=== PATIENT | female | born 2000 | race Caucasian/White ===

== ENCOUNTER 2023-09-08 19:26 | Emergency (ER) | payer OTHER, SELFPAY ==
--- NOTE | ~2023-09-08 | XR_ITS ---
EXAMINATION: XR ankle LT min 3V, XR foot LT min 3V CLINICAL INFORMATION: Reason for Exam Twisting injury, tender bilateral malleolus COMPARISON: None. TECHNIQUE: 2 views of the left ankle and 3 views of the left foot. FINDINGS: Left foot and ankle: The bony alignment is intact. The cortices are intact. Articular margins, joint space appear unremarkable. Mild nonspecific soft tissue swelling is present overlying the left lateral malleolus. However, small cortical avulsion is present at the base of the fifth metatarsal. The remainder of the visualized bones of the left foot are unremarkable. XR/XR ankle LT min 3V IMPRESSION: Small cortical avulsion fracture seen at the base of the left fifth metatarsal best seen on the ankle views (see the william images).
--- NOTE | ~2023-09-08 | XR_ITS ---
EXAMINATION: XR ankle LT min 3V, XR foot LT min 3V CLINICAL INFORMATION: Reason for Exam Twisting injury, tender bilateral malleolus COMPARISON: None. TECHNIQUE: 2 views of the left ankle and 3 views of the left foot. FINDINGS: Left foot and ankle: The bony alignment is intact. The cortices are intact. Articular margins, joint space appear unremarkable. Mild nonspecific soft tissue swelling is present overlying the left lateral malleolus. However, small cortical avulsion is present at the base of the fifth metatarsal. The remainder of the visualized bones of the left foot are unremarkable. XR/XR foot LT min 3V IMPRESSION: Small cortical avulsion fracture seen at the base of the left fifth metatarsal best seen on the ankle views (see the william images).
[2023-09-08 20:09] VITALS: BP 125/70; PULSE 94; RESP 18; TEMP 36.6; O2SAT 99; BMI 47.4
--- NOTE | 2023-09-08 20:56 | ED_ITS ---
HPI - Fall General Chief Complaint: Fall Stated Complaint: fall, possible broken foot, is Time Seen by Provider: 09/08/23 20:55 Source: patient and family (Sister) Mode of arrival: ambulatory Limitations: no limitations History of Present Illness HPI Narrative: 22-year-old female who presents emergency department for evaluation injury to left ankle and foot. Patient was getting out of her car and she had platform shoes on, she states that she twisted her ankle and felt a popping sensation. Patient fell to the ground on her knees. She did not strike her head or her abdomen. She is currently complaining left foot and ankle pain and is having difficulty walking secondary to pain. Patient is 25 weeks and is having her baby at [facility]. Patient has been getting care and she states she has had ultrasound which did reveal a slightly low placental above otherwise was unremarkable. Patient denies any abdominal pain since the fall. She states that she is feeling the baby move normally. She has not had any vaginal discharge or vaginal bleeding. She denies headaches, lower extremity swelling or urinary symptoms Related Data Allergies Allergy/AdvReac Type Severity Reaction Status Date / Time No Known Allergies Allergy Unverified 06/10/20 19:46 [No Known Allergies*] Review of Systems Review of Systems: Yes all other systems are reviewed and are negative PMFSH Social History Social History Advance Directives: No Advance Directives Information Provided: No Physical Exam Vital Signs: Vital Signs: Last Vital Signs Temp 98 F 09/08/23 20:09 Pulse 94 09/08/23 20:09 Resp 18 09/08/23 20:09 BP 125/70 09/08/23 20:09 Pulse Ox 99 09/08/23 20:09 O2 Del Method Room Air 09/08/23 20:09 BMI result Body Mass Index 47.4 Vital signs are normal with a blood pressure of 125/70. Exam General: Awake, alert in no distress Extremities: Patient has tenderness palpation over the bilateral malleoli of the left ankle with soft tissue swelling bilaterally, she also has tenderness with palpation over the MTP joints of the foot with no obvious ecchymosis or soft tissue swelling, extremities neurovascular intact Skin: no rashes, no lesion, normal color and warmth Psych: Pleasant, cooperative Medical Decision Making Medical Decision Making MDM Narrative: 22-year-old female 25 weeks who presents emergency department for evaluation of a left ankle and foot injury that occurred prior to coming to the emergency department. Patient had no head injury abdominal injury is having no abdominal pain, feels the baby moving and she has had no concerning symptoms regarding the prior to falling. Patient also denied head injury. Exam did reveal tenderness palpation of the bilateral malleolus of the left ankle and MTP joints of the left foot. I did order x-ray of the left ankle and left foot. The patient chest x-ray was read as small cortical avulsion fracture seen at the base of the left 5th metatarsal best seen on the ankle view Differential Diagnosis Differential Diagnoses: The differential diagnosis associated with the presentation includes Differential diagnosis includes but is not limited to ankle sprain, ankle fracture foot sprain, foot fracture, related illnesses Independent Interpretation I performed an independent interpretation of an: Plain X-Ray Interpretation: My interpretation patient's left ankle and left foot x-ray is no acute fracture Radiology Impression Discussion of test interpretation with radiology: I have reviewed the radiologist's reading. Radiologist Impression: XR foot LT min 3V IMPRESSION: Small cortical avulsion fracture seen at the base of the left fifth metatarsal best seen on the ankle views (see the william images). Dictated By: Elvis Olivas MD Discharge Plan Discharge Clinical Impression: Left ankle sprain, Sprain of left foot, Second trimester Patient Disposition: Home, Self-Care Instructions: Ankle Sprain (ED), Foot Sprain (ED) Additional Instructions: On my review of your x-rays I do not see any broken bones. I will call or text me with the radiology reading and if there is a change in treatment I will let you know I am placing you in a walking boot and given crutches. You can foot weight on the walking boot but use the crutches to reduce the amoun t of weight that she putting on the left foot.. Take Tylenol (acetaminophen) 500 mg pills, 2 pills every 6 hours as needed for pain or fever. Do not take aspirin, ibuprofen, Motrin, Advil, Aleve, naproxen or any other nonsteroidal anti-inflammatory pain medication while your Follow-up with our orthopedic doctors in 1 week Please return to the emergency department if your symptoms get worse or if you develop any symptoms that are concerning to you. Referrals: Lex Almaraz MD [Physician] - 1 week (Left foot and ankle sprain) Interventions: ED Discharge Assessment Last Done: 09/08/23 22:24 Discharge Date/Time: 09/08/23 22:40
== END 2023-09-08 22:40 | disposition home or self-care (01) ==
PROVIDERS: Emergency Provider Emergency Medicine Emergency Medical Services
DX: O9A.212 Injury, poisoning and certain other consequences of external causes complicating pregnancy, second trimester (principal); S93.602A Unspecified sprain of left foot, initial encounter; S93.402A Sprain of unspecified ligament of left ankle, initial encounter; X50.1XXA Overexertion from prolonged static or awkward postures, initial encounter; Z3A.25 25 weeks gestation of pregnancy; Y93.89 Activity, other specified; Y92.810 Car as the place of occurrence of the external cause; Y99.9 Unspecified external cause status
CPT/HCPCS: 73610; 73630; 99283

== ENCOUNTER 2023-09-21 08:42 | Outpatient (AMB) | payer OTHER, SELFPAY ==
--- NOTE | 2023-09-21 08:43 | A.OFFVIS_ITS ---
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 Patient reports while she was getting out of her car, wearing platform shoes, she twisted her ankle and felt a popping sensation with getting back up. Presented to [facility] ED on 09/08/23 where xrays were take, placed in boot, and crutches were given. Currently her pain gets worse with prolong walking. States tender to the touch. Finds little to no relief with Tylenol. 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 She was seen at ED on 09/08/23 where x-rays were performed, she was placed in a boot and crutches were given. She currently states she has pain in her left leg which is aggravated with prolonged ambulation. She also reports her foot is tender to touch. She finds minimal relief with Tylenol. 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 Review of Systems Const All systems reviewed & are unremarkable except as noted in HPI and below Physical Exam Vital Signs: BMI result Body Mass Index 47.4 Const General: cooperative, healthy appearing, comfortable, no acute distress, well developed and alert Orientation/consciousness: patient oriented x3 HEENT Head: Yes normal to inspection, Yes normocephalic and Yes atraumatic Eyes General: appearance normal, both eyes and all related structures Resp Effort & Inspection: normal respiratory effort and able to speak in complete sentences Cardio Rate: regular rate Peripheral pulses: Peripheral pulses 2+ throughout GI Palpation (GI): Soft to palpation Skin Lesions: no lesions Rashes: no rashes Neuro General: patient oriented x3 Extrem Other: Left foot: Normal to inspection. She does have some swelling along the lateral aspect of the foot. Tenderness to palpation over the base of 5th metatarsal which extends into the soft tissues around the lateral malleolus. No pain over the medial malleolus. No pain over the syndesmosis. NVI. Office Procedures Fracture Care Fracture Billing Code: Fracture Billing Code Results Reviewed Results Reviewed: xrays of the left foot obtained in the ED on 09/08/23 IMPRESSION: Small cortical avulsion fracture seen at the base of the left fifth metatarsal Assessment & Plan Assessment & Plan (1) Right ankle sprain: Code(s): S93.401A - Sprain of unspecified ligament of right ankle, initial encounter Qualifiers: Encounter type: initial encounter Involved ligament of ankle: anterior talofibular ligament Qualified Code(s): S93.491A - Sprain of other ligament of right ankle, initial encounter (2) Fracture of 5th metatarsal: Code(s): S92.353A - Displaced fracture of fifth metatarsal bone, unspecified foot, initial encounter for closed fracture Qualifiers: Encounter type: initial encounter Fracture type: closed Fracture alignment: nondisplaced Laterality: left Qualified Code(s): S92.355A - Nondisplaced fracture of fifth metatarsal bone, left foot, initial encounter for closed fracture Plan She will continue wearing her boot weight bearing as tolerated for the next 2-3 weeks for resting. She will remove the boot for hygiene. She will begin a course of physical therapy to work on ROM, gentle strength and proprioceptive training. If symptoms persist or worsens, patient will contact the office, otherwise follow-up as needed. Orders: Orders PT Evaluation and Treatment Today S92.353A - Displaced fracture of fifth metatarsal bone, unspecified foot, initial encounter for closed fracture, S93.401A - Sprain of unspecified ligament of right ankle, initial encounter Patient Instructions: Scribed for Eliel Mendez PA-C, by Ever Marks certified medical aide, on 09/21/2023 at 8:30 AM EST. I, Eliel Mendez PA-C, have personally reviewed and agree with the information entered by the scribe. Coding Level of Care Code New Pt Level 3 (02677) Diagnoses Sprain of anterior talofibular ligament of right ankle, initial encounter S93.491A Encounter type: initial encounter Involved ligament of ankle: anterior talofibular ligament Closed nondisplaced fracture of fifth metatarsal bone of left foot, initial encounter S92.355A Encounter type: initial encounter Fracture type: closed Fracture alignment: nondisplaced Laterality: left CPT Codes Fracture Care - Fracture Billing Code: Fracture Billing Code ([id number])
[2023-09-21 08:52] VITALS: BMI 47.4
== END 2023-09-21 09:05 | disposition home or self-care (01) ==
PROVIDERS: Visit Provider Physician Assistant
DX: S93.491A Sprain of other ligament of right ankle, initial encounter (principal); S92.355A Nondisplaced fracture of fifth metatarsal bone, left foot, initial encounter for closed fracture
CPT/HCPCS: 99203

== ENCOUNTER → 2023-09-21 08:42 | Outpatient (BNVA) | payer OTHER, SELFPAY | PROVIDERS: Visit Provider Physician Assistant | DX: S92.355A Nondisplaced fracture of fifth metatarsal bone, left foot, initial encounter for closed fracture (principal); S93.491A Sprain of other ligament of right ankle, initial encounter | CPT/HCPCS: 99202 ==

== ENCOUNTER 2024-09-19 10:55 | Outpatient (AMB) | payer OTHER, SELFPAY ==
--- NOTE | 2024-09-19 10:58 | MHC.PC.OV ---
Vital Signs 09/19/24 11:06 Height 5 ft 5 in Weight 288 lb 2 oz BMI 47.9 BP 130/70 Blood Pressure Location Rt brachial Position Sitting Respiration 16 Pulse 68 Pulse Source Pulse Oximeter Temp 98.6 F Temp Source Oral Pulse Oximetry (%) 98 Oxygen Delivery Method Room Air Intake Visit Reasons: New Appt New Patient requesitng an PE Intake Note: patient here for new patient visit [employer] Required: No Is last menstrual period known: Yes Last menstrual period: 08/27/24 Post menopausal: No Patient : No Allergies No Known Allergies [No Known Allergies*] Allergy (Verified 09/19/24 11:07) Medication List - Last Reconciled 09/19/24 by Jewels Flowers CNP No Known Home Meds Tobacco use date assessed: 09/19/24 Dental Screening Dental Screen Date: 09/19/24 Did you have a dental visit in the last 12 months?: No Did you have a dental problem in the last 6 months where you did not have access to dental care?: No Was dental information given to patient?: Yes HPI HPI Comments History of Present Illness Details 23-year-old female presents for an extended physical exam. Prior PCP? - [facility] Last office visit/CPE/labs - About 2 years ago Acute issue(s) - None Past Medical History - Gastric ulcer, morbid obesity, myopia (wears prescription glasses) Surgical History - None Family History - MGF: Alcohol abuse Social History - Nonsmoker. Does not vape. Does not drink alcohol. Denies recreational drug use - Has been making healthy dietary choices. Exercises routinely (cardio and leg presses three times weekly. Generally sleep well. Requests weight management referral for bariatric surgery - Sexually active, in a monogamous relationship, use condoms for control, no concerns for STDs Health maintenance - Last eye exam was 5 years ago. Referred to Ophthalmology for routine eye care - Last dental visit was about 2 years ago; encouraged to schedule an appointment with his dentist for routine dental care - Last Tdap was in 2022 - Has not been vaccinated for the flu this season; administered during this visit - Last pap smear test was with [facility] in 08/2023 or 09/2023 [facility] Medical History (Updated 09/19/24 @ 11:39 by Jewels Flowers CNP) Stomach ulcer Surgical History Hx of endoscopy Family History (Updated 09/19/24 @ 11:12 by Jaquelin Silverio) Maternal Grandfather Alcohol abuse Brother Asthma Paternal Grandfather Diabetes Social History (Updated 09/21/23 @ 08:52 by Sofy Seay [facility]) Housing: Apartment Patient Tobacco Use Status: Never used Tobacco e-Cigarette/Vaping Use: Never Used Second Hand Smoke Exposure: No service: No Current occupational status: employed Current occupation: [email or web address] Current occupational exposures/hazards: No Cognitive needs: No Hearing needs: No Vision needs: Yes Female Reproductive History Menstrual Date of last menstrual period: 08/27/24 Questionnaire PHQ-9 Over the last 2 weeks, how often have you been bothered by any of the following problems? 1. Little interest or pleasure in doing things: not at all 2. Feeling down, depressed, or hopeless: not at all 3. Trouble falling or staying asleep, or sleeping too much: not at all 4. Feeling tired or having little energy: not at all 5. Poor appetite or overeating: not at all 6. Feeling bad about yourself - or that you are a failure or have let yourself or your family down: not at all 7. Trouble concentrating on things, such as reading the newspaper or watching television: not at all 8. Moving or speaking so slowly that other people could have noticed. Or the opposite - being so fidgety or restless that you have been moving around a lot more than usual: not at all 9. Thoughts that you would be better off or of hurting yourself in some way: not at all Total score: 0 Depression Screening Interpretation: Negative Depression Screening Done: Yes 30162 - PHQ-9 Billing: Yes Source: Developed by Drs. Rigoberto Whatley, Rosalinda Carmichael, Josué Duarte and colleagues, with an educational sania from [employer]. Thrive Questionnaire Date Thrive assessed: 09/19/24 I am a: Patient What is your living situation today?: I have a steady place to live Within the past 12 months, did the food you bought not last and you didn't have the money to get more?: Never true Within the past 12 months, did you worry whether your food would run out before you got money to buy more?: Never true Do you have trouble paying for medicines?: No Do you have trouble getting transportation to medical appointments?: No Do you have trouble paying your heating and electricity bill?: No Do you have trouble taking care of your child, family member or friend?: No Do you have trouble with day-to-day activities such as bathing, preparing meals, shopping, managing finances, etc.?: No Are you currently unemployed and looking for a job?: No Are you interested in more education?: Yes Please select the resources that you would like help with: None Currently or been in a relationship where the following occur: No concerns reported THRIVE Score: 0 AUDIT C Alcohol Use Questionnaire (AUDIT-C) 1. How often do you have a drink containing alcohol?: Never Total Score: 0 SOSA-7 AMB Questionnaire SOSA-7 Date SOSA - 7 assessed: 09/19/24 Feeling nervous, anxious, or on edge: 0 = Not at all Not being able to stop or control worryin = Not at all Worrying too much about different things: 0 = Not at all Trouble relaxin = Not at all Being so restless that it is hard to sit still: 0 = Not at all Becoming easily annoyed or irritable: 0 = Not at all Feeling afraid as if something awful might happen: 0 = Not at all Total SOSA-7 score (0-4 normal; 5-9 mild; 10-14 moderate; 15-21 severe): 0 Source: Developed by Drs. Rigoberto Whatley, Rosalinda Carmichael, Josué Duarte and colleagues, with an educational sania from [employer]. SOSA-7 Assessment Billing SOSA-7 Assessment Tool: SOSA-7 Assessment 54251 Review of Systems Const Details: Denies chills, Denies fatigue, Denies fever(s), Denies headache(s) and Denies weakness HEENT Denies change in vision, Denies dizziness, Denies headache(s), Denies hearing loss, Denies nasal congestion, Denies sinus pain, Denies sinus pressure and Denies sore throat Card Denies chest pain, Denies lightheadedness, Denies dyspnea and Denies other (palpitations) Resp Denies cough, Denies dyspnea and Denies wheezing GI Denies abdominal pain, Denies melena, Denies hematochezia, Denies change in bowel habits, Denies dyspepsia and Denies nausea Denies hematuria and Denies dysuria Musc Denies abnormal gait, Denies myalgias, Denies arthralgias, Denies numbness and Denies tingling Skin/Breast Denies rash, Denies unusual bruising and Denies wounds Neuro Denies abnormal gait, Denies dizziness, Denies headache(s), Denies memory loss, Denies numbness, Denies Sensory deficit (Neuro), Denies tingling and Denies weakness Psych Denies anxiety, Denies depression and Denies memory loss Endo Denies cold intolerance, Denies fatigue, Denies heat intolerance, Denies polydipsia and Denies polyuria Will/Lymph Denies easy bleeding and Denies easy bruising Aller/Immun Denies wheezing Physical exam (Primary Care) Vital Signs: Last Vital Signs Temp 98.6 F 09/19/24 11:06 Pulse 68 09/19/24 11:06 Resp 16 09/19/24 11:06 BP 130/70 09/19/24 11:06 Pulse Ox 98 09/19/24 11:06 Oxygen Delivery Method Room Air 09/19/24 11:06 BMI result Body Mass Index 47.9 Tobacco/Smoking Status: Tobacco use Status Tobacco use date assessed 09/19/24 09/19/24 11:06 Patient Tobacco Use Status Never used Tobacco 09/19/24 11:06 e-Cigarette/Vaping Use Never Used 09/19/24 11:06 PHQ-9: PHQ-9 Score PHQ-9: Total score 0 09/19/24 11:46 Depression Screening Interpretation: Negative Thrive Assessment: Date of Thrive Assessment Date Thrive assessed 09/19/24 09/19/24 11:06 Currently or been in a relationship where the following occur: No concerns reported Const Other: General: no acute distress, well developed, alert and awake Nutritional Appearance: well nourished Orientation/consciousness: patient oriented x3 HENMT Head: Yes normocephalic and Yes atraumatic Ears: hearing grossly normal bilaterally and TM's normal bilaterally General nose exam: Normal external nose present and Normal nares present Mouth: Normal oral and palatal mucosa present and moist mucous membranes Teeth and gingiva: dentition normal Throat: Yes oropharynx normal Eyes Pupils: Equal, round and reactive pupils present and Pupil accommodation reflex normal EOM: EOMs intact bilaterally Neck Neck: Yes normal visual inspection, Yes no lymphadenopathy and Yes trachea midline Thyroid: Thyroid normal Carotids: no bruits Lymphatic: no lymphadenopathy noted Chest Chest palpation & inspection: normal inspection of the chest Resp Effort & Inspection: normal respiratory effort Auscultation: clear to auscultation bilaterally Cardio Rate: regular rate Rhythm: regular rhythm Heart sounds: S1 normal heart sound present, S2 normal heart sound present, no gallops, no murmurs and no rubs Bruits: no abdominal aortic bruits and no carotid bruits GI Palpation (GI): No Abdominal aortic bruit present, Soft to palpation, nontender, No hepatosplenomegaly present and No Rebound tenderness present Auscultation: normal bowel sounds General: Yes no CVA tenderness Back/Spine/Pelvis Back: no CVA tenderness Cervical Spine: cervical ROM normal and No Cervical spine tenderness Thoracic/Lumbar Spine: thoraco-lumbar ROM normal, No pain with thoraco-lumbar ROM, No thoracic spinal tenderness and No lumbar spinal tenderness Skin General: warm and dry. Normal skin color. Normal skin turgor Lesions: no lesions Rashes: no rashes Trauma: no lacerations or abrasions Wounds: no wounds Nails: normal Neuro General: patient oriented x3, gait normal and CN's II-XI intact bilaterally Cranial nerves: Yes Equal, round and reactive pupils present Cognition (Neuro): normal cognition Gait exam (Neuro): Normal gait present Motor exam (neuro): 5/5 motor strength present throughout Sensory Exam: No Sensory deficit (Neuro) Deep tendon reflexes (DTR's): Right patellar reflex intensity grade: 2+ and Left patellar reflex intensity grade: 2+ Extrem General: Yes normal to inspection, No edema and No calf tenderness Psych Appearance: grossly normal Affect: normal affect Attitude: cooperative Thought process: Normal thought process present Office Procedures Flu Questionnaire Does the patient have a severe egg allergy?: No Does the patient have severe life threatening allergies?: No Does the patient have a fever or illness today?: No Has the patient ever had Guillain-Dwight Syndrome?: No Has the patient ever had any past reaction to a flu shot?: No Immunizations Fluarix Triv [id number] (PF) 45 mcg (15 mcg x 3)/0.5 mL IM syringe Performing Provider: Jewels Flowers CNP Performing Location: [facility] Administered by: Zohreh Hodges RN on 09/19/24 11:44 Dose Route Admin Location Dispensed Lot Number Expiration Date NDC Car Cooper 0.5 mL IM Left Deltoid 0.5 mL [id number] 03/23/25 [id number] [employer] VIS Given Date VIS Provided VIS Publication Date 09/19/24 Single Vaccine 21 Eligibility Eligibility Date Funding Source Not [facility] Eligible 09/19/24 Private Coding Level of Care Code New Pt Prev Care 18-39yr([id number] Diagnoses Normal physical examination, routine Z00.00 Morbid obesity with BMI of 45.0-49.9, adult E66.01; Z68.42 Eye exam, routine Z01.00 Myopia H52.10 Flu vaccine need Z23 Laboratory tests ordered as part of a complete physical exam (CPE) Z00.00 Additional Codes SOSA-7 Assessment Billing - SOSA-7 Assessment Tool: SOSA-7 Assessment 80692 ([id number]) PHQ-9 - 45580 - PHQ-9 Billing: Yes ([id number]) Assessment & Plan Assessment & Plan (1) Normal physical examination, routine: Code(s): Z00.00 - Encounter for general adult medical examination without abnormal findings Category: Medical Plan: No significant functional limitation noted. Advised to get lab work done and follow-up for telehealth visit in 2 weeks for labs review. Return sooner with symptoms or concerns. Verbalized understanding and agreed with treatment plan. (2) Morbid obesity with BMI of 45.0-49.9, adult: Code(s): E66.01 - Morbid (severe) obesity due to excess calories; Z68.42 - Body mass index [BMI] 45.0-49.9, adult Category: Medical Plan: She currently weighs 288 lb, BMI is 47.9. Healthy diet and routine exercise encouraged. Referred to [facility] weight management clinic as requested. Follow-up as needed. Verbalized understanding and agreed with the plan. (3) Eye exam, routine: Code(s): Z01.00 - Encounter for examination of eyes and vision without abnormal findings Category: Medical Plan: Last eye exam was 5 years ago. Referred to Ophthalmology for routine eye exam. (4) Myopia: Code(s): H52.10 - Myopia, unspecified eye Category: Medical Plan: Wears prescription glasses. Plan as above. (5) Flu vaccine need: Code(s): Z23 - Encounter for immunization Category: Medical Plan: Administered during this visit. (6) Laboratory tests ordered as part of a complete physical exam (CPE): Code(s): Z00.00 - Encounter for general adult medical examination without abnormal findings Category: Medical Plan: Fasting labs ordered as part of a complete physical exam. Advised to fast for at least 10 hours before getting labs drawn. May drink water Verbalized understanding and agreed with treatment plan. Orders: Orders Comprehensive [place]. Panel Fast Today Z00.00 - Encounter for general adult medical examination without abnormal findings Complete Blood Count Auto Diff Today Z00.00 - Encounter for general adult medical examination without abnormal findings Lipid Panel Today Z00.00 - Encounter for general adult medical examination without abnormal findings TSH reflex Free T4 Today Z00.00 - Encounter for general adult medical examination without abnormal findings UA CC w/rflx Micro + Cult Today Z00.00 - Encounter for general adult medical examination without abnormal findings Influenza [id number] Immunization Today Z23 - Encounter for immunization Referrals Ophthalmology Referral H52.10 - Myopia, unspecified eye, Z01.00 - Encounter for examination of eyes and vision without abnormal findings Medical Weight Management Referral E66.01 - Morbid (severe) obesity due to excess calories, Z68.42 - Body mass index [BMI] 45.0-49.9, adult
[2024-09-19 11:06] VITALS: BP 130/70; PULSE 68; RESP 16; TEMP 37; O2SAT 98; BMI 47.9
== END 2024-09-19 11:35 | disposition home or self-care (01) ==
PROVIDERS: PCP Family Medicine; Visit Provider Nurse Practitioner Family
DX: Z00.00 Encounter for general adult medical examination without abnormal findings (principal); E66.01 Morbid (severe) obesity due to excess calories; Z68.42 Body mass index [BMI] 45.0-49.9, adult; H52.10 Myopia, unspecified eye; Z23 Encounter for immunization

== ENCOUNTER → 2024-09-19 10:55 | Outpatient (BNVA) | payer MEDICARE, OTHER, SELFPAY | PROVIDERS: PCP Family Medicine; Visit Provider Nurse Practitioner Family ==

== ENCOUNTER 2024-09-19 11:55 | Outpatient (REF) | payer OTHER, SELFPAY ==
[2024-09-19 14:14] LABS: Appearance Urine Clear; Color Urine Yellow; Glucose Urine UA Negative (Negative); Leukocyte Esterase Urine Small (1+) (Negative); Nitrite Urine Negative (Negative); PH 6.5 (5.0-9.0); UMIC TRIGGER UACC YES; Urine Blood Negative (Negative); Urine Ketones Negative (Negative); Urine Protein Negative (Neg-Trace)
[2024-09-19 14:15] LABS: MANUAL DIFF FLAG NO
[2024-09-19 14:19] LABS: Basophils Absolute Auto 0.1 X10*3/uL (0.0-0.2); Eosinophils Absolute Auto 0.3 X10*3/uL (0.0-0.4); Eosinophils Percent Auto 3.1 % (0-4); Hematocrit 39.5 % (37.0-47.0); Hemoglobin 12.5 g/dl (12.0-16.0); Imm Gran Abs Auto 0.03 X10*3/uL (0.00-0.03); Imm Gran Pct Auto 0.4 % (0.0-0.4); Lymphocytes Absolute Auto 2.3 X10*3/uL (1.2-4.9); Mean Corpuscular HGB Conc 31.6 g/dl (31.0-35.0); Mean Corpuscular Hemoglobin 25.3 pg (27.0-33.0); Mean Platelet Volume 11.7 fL (9.4-12.3); Monocytes Absolute Auto 0.5 X10*3/uL (0.1-1.2); Monocytes Percent Auto 5.7 % (2-11); Neutrophils Percent Auto 61.8 % (45-73); Platelet Count 294 X10*3/uL (160-400); Red Blood Count 4.94 X10*6/uL (4.20-5.50); Red Cell Distribution Width 14.6 % (11.0-16.0); White Blood Count 8.1 X10*3/uL (4.8-10.8)
[2024-09-19 14:31] LABS: Bacteria Urine 1+ (None Seen); Hyaline Casts Urine 0-2 /LPF (0-2); RBC Urine 0-2 /HPF (0-2); UACC Culture Trigger YES; WBC Urine 0-5 /HPF (0-5)
[2024-09-19 14:46] LABS: Alanine Aminotransferase 18 U/L (0-31); Albumin Level 4.4 g/dL (3.5-5.0); Alkaline Phosphatase 97 U/L (39-117); Anion Gap 11 (12-20); Aspartate Amino Transferase 22 U/L (5-31); Bilirubin Total 0.4 mg/dL (0.0-1.0); Blood Urea Nitrogen 14 mg/dL (9-16); Carbon Dioxide 23 mmol/L (22-29); Chloride 106 mmol/L (96-108); Cholesterol 151 mg/dL (<200); Estimated Glomerular Filt Rate > 60; Glucose Fasting 85 mg/dL (60-99); HDL Cholesterol 46 mg/dL (>40); LDL Cholesterol Calculated 91 mg/dL (<100); Potassium 4.1 mmol/L (3.3-5.1); Sodium 136 mmol/L (135-145); Total Protein 7.6 g/dL (6.5-8.0); Triglycerides 70 mg/dL (<150)
[2024-09-19 15:03] LABS: TSH reflex Free T4 1.81 uIU/mL (0.32-4.0)
== END 2024-09-19 11:56 | disposition home or self-care (01) ==
LOC: HO.WFDLDS 11:55
PROVIDERS: Visit Provider Nurse Practitioner Family
DX: Z00.00 Encounter for general adult medical examination without abnormal findings (principal); Z23 Encounter for immunization; E66.01 Morbid (severe) obesity due to excess calories; Z68.42 Body mass index [BMI] 45.0-49.9, adult; H52.10 Myopia, unspecified eye
CPT/HCPCS: 36415; 80053; 80061; 81001; 84443; 85025; 87086; 90471; 90656; 96127; 99385

== ENCOUNTER 2024-11-03 08:00 | Outpatient (AMB) | payer OTHER, SELFPAY ==
--- OUTSIDE RECORDS SUMMARY | 2024-11-03 08:03 | XMS_ITS | Clinical Summary ---
Author Organization [facility] it[facility] Address [address] [place] [address] Care Team Providers Care Java Engineer Name Role Phone Unavailable Primary Care Provider Unavailabl e Social History Tobacco Use Types Packs/Day Years Used Date Smoking Tobacco: Never Assessed Comments Unknown Sex and Gender Information Value Date Recorded Sex Assigned at Not on file Legal Sex Female 3:19 PM EST Gender Identity Not on file Sexual Orientation Not on file Plan of Treatment Health Maintenance Due Date Last Done Comments Gonorrhea/Chlamydia Screening 2001 DTaP,Tdap,and Td Vaccines (1 - Tdap) 2008 HPV Vaccines (1 - 3-dose series) 2016 Meningococcal B Vacine (1 of 2 - Standard) 2017 Hepatitis B Vaccines (1 of 3 - 19+ 3-dose series) 2020 Depression Screening 08/23/2022 HIV Screening 08/23/2022 Hepatitis C Screening 08/23/2022 Social Influencers of Health Screening 08/23/2022 Cervical Cancer Screening: P ap Smear 2022 COVID-19 Vaccine ( - 2023-2 5 season) 2024 Influenza Vaccine (#1) 2024 HIB Vaccines Aged Out No longer eligi ble based on patient's age to complete this topic Hepatitis A Vaccines Aged Out No long er eligible based on patient's age to complete this topic IPV Vaccines Aged Out No longer eligi ble based on patient's age to complete this topic MMR Vaccines Aged Out No longer eligi ble based on patient's age to complete this topic Meningococcal ACWY Vaccine Aged Out N o longer eligible based on patient's age to complete this topic Pneumococcal Vaccine: Pediat rics (0 to 5 Years) and At-Risk Patients (6 to 64 Years) Aged Out No longer eligible b ased on patient's age to complete this topic RSV Immunization Patients Un yan 20 months Aged Out No longer eligible b ased on patient's age to complete this topic Varicella Vaccines Aged Out No longer eligible based on patient's age to complete this topic
--- NOTE | 2024-11-03 12:51 | A.OFFVIS_ITS ---
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 BMI 47.1: Details: Start time: 12.42pm, End time: 1.22pm ?I spent 35 minutes speaking with the patient on the phone plus an additional 5 minutes reviewing and updating records for a total of 40 minutes HPI Comments Details: Previous weight loss efforts: exercise and self diets Wakes up: 7.30am, sleeps: 9.30pm Breakfast: 8am (eggs and toast, or fruits) Lunch: 11am (Deli sandwich, nuggets and fries) Dinner: 6pm (chicken, pork, rice, beans, broccoli) Snacks: 10am (crackers, pie) Exercise: none, has a gym membership Fluids: Coffee: 1/wk, hot tea: 2/wk (honey with 1/2 tbs of sugar), soda: Gingerale (4 cans/wk), juice: none, ETOH: none PFSH Medical History (Updated 11/03/24 @ 12:53 by Juwan Jones MD) Morbid obesity Stomach ulcer Surgical History Hx of endoscopy Family History (Updated 10/27/24 @ 09:27 by Wilma Sarkar CMA) Maternal Grandfather Alcohol abuse Brother Asthma Paternal Grandfather Diabetes Son No problems noted. Mother No problems noted. Father Hypertension Social History (Updated 09/21/23 @ 08:52 by FRANKLIN Munguia) Housing: Apartment Patient Tobacco Use Status: Never used Tobacco e-Cigarette/Vaping Use: Never Used Second Hand Smoke Exposure: No service: No Current occupational status: employed Current occupation: [employer] Current occupational exposures/hazards: No Cognitive needs: No Hearing needs: No Vision needs: Yes Telehealth Telehealth Telehealth Platform: Telephone Location of provider rendering services: practice address Location of patient: address on file Patient Identification confirmed using: Name, : Yes Telehealth method: voice only Patient verbally consented to treatment: Yes Patient verbally consented to billing insurance company: Yes Patient informed of any privacy concerns related to visit: Yes Minutes spent on Phone/Video with Pt.: 40 Assessment & Plan Assessment & Plan (1) Morbid obesity: Code(s): E66.01 - Morbid (severe) obesity due to excess calories Category: Medical Plan: 1.? Plan for lap sleeve gastrectomy. If diaphragmatic or ventral hernias are present at time of surgery, these will be repaired laparoscopically as well. I emphasized the importance of close follow-up, adherence to instructions and good communication. The surgery does not replace the need to change your lifestlyle which is the cause of the obesity problem. The surgery provides the motivation to try again to change your lifestyle, it reduces the appetite and make the transition to a better lifestyle easier and doubles the amount of weight you would lose compared to doing the lifestyle change without the surgery. You will need to be on a liquid diet with protein shakes for 2 weeks before surgery to maximize weight loss and boost your nutritional status to recover better from surgery and also for the first two weeks after surgery to let the stomach heal before we introduce other foods. After the first 2 weeks we will introduce protein bars and soft foods like scrambled eggs, cottage cheese and yogurt and after the 6th week will introduce meat, fish and cooked vegetables in small amounts. Over time you should be able to eat everything in small amounts. Side effects like nausea, vomiting, heartburn or abdominal pain are not common in the practice unless you are not following in the practice. This operation requires lifetime commitment to following in our practice and communication with me. You will much less weight and experience side effects if you don?t communicate or not following in the practice. Complications are rare and in our practice is about 1/10 of the national average. However, you can develop bleeding that may require transfusion (hasn?t happened for year in the practice), you may from complications (we did not have any deaths in the practice) and infections. Infections are usually a result of breakdown in communication or not understanding or following directions correctly. They are difficult to treat, they can happen during the first 6 weeks, they may require to be in the hospital for weeks or even months, not being able to eat by mouth and you may have drains and surgeries to try and correct the issue. Other risks and complications include possible conversion to an open procedure, leaks, small bowel obstruction, blood clots, cardiac, or pulmonary complications, as fdc complications such as ulcers, insufficient weight loss and vitamin deficiencies. 2. You will receive a link of our software kishore to generate an individualized nutritional and exercise plan specific for you. Please send me a screenshot of the plans you will generate Meal to include lean meat (beef, fish, pork, turkey, chicken), or citizen of [place] yogurt, or egg whites, or beans with a salad with olive oil and fruits (berries, pears, apples, kiwi). Avoid salt, breads, potatoes, rice, pasta, desserts. ?3. If you choose shakes, each shake would be drunk slowly, like coffee in a period of 2 hours. ?4. If you choose bars, cut each bar in 4 pieces and eat each piece in 30min ?to make each bar last 2 hours. ?5. I emphasized the importance of measuring accurately the food portion and measure it when serving the food in plate ?6. The meal portions include a specific number of forks of meat and salad. You always eat the meat portion but you can replace up to half of salad/vegetables portion with rice, potatoes or pasta, or a fruit ?if you like. The less you do it the better weight loss will be. ?7. One full-size fork is what it can be scooped on the fork without falling aside and not what can be bit with the fork. Use regular forks like those you find in a typical restaurant. ?8.? Please buy the body composition scale we discussed and send me weight measurements as soon as possible and then once a week. Always include your diet and exercise plan. 9. The best choice would be to purchase a stationary bike, elliptical or treadmill at home that can track calories. Let me know if you do so I can give you an exercise plan. ?10.?It is important of avoiding and for at least 18 months postoperatively and has been discussed at the infosession. ?11. Goal is to lose at least 1.5-2lbs per week ?12. Goal to lose 10% of your weight before surgery, which is about 30lbs. Ultimate weight goal: 253lbs before surgery 13. Please follow the diet plan exactly without any change. If you don't like something about the plan or you feel hungry you need to communicate with me so I can help you revise the plan. You should not change the plan yourself. 14. To be scheduled for EGD due to the history of ulcer. The possibility of biopsies was discussed. Patient needs to avoid use of NSAIDs and aspirin for 1 week prior to EGD. You must be on liquids only the day before your endoscopy. Risks of perforation and bleeding was discussed with the patient. This will be an outpatient procedure with IV sedation. Orders: Orders Insulin Today E66.01 - Morbid (severe) obesity due to excess calories Hemoglobin A1c Today E66.01 - Morbid (severe) obesity due to excess calories Complete Blood Count Auto Diff Today E66.01 - Morbid (severe) obesity due to excess calories Lipid Panel Today E66.01 - Morbid (severe) obesity due to excess calories IRON PROFILE Today E66.01 - Morbid (severe) obesity due to excess calories Vitamin B12 and Folate Today E66.01 - Morbid (severe) obesity due to excess calories Zinc Today E66.01 - Morbid (severe) obesity due to excess calories Vitamin B1 Today E66.01 - Morbid (severe) obesity due to excess calories Vitamin D 25-OH Total Today E66.01 - Morbid (severe) obesity due to excess calories US abdomen comp w elastography Today E66.01 - Morbid (severe) obesity due to ex cess calories XR chest 2V Today E66.01 - Morbid (severe) obesity due to excess calories FL upper GI w air Today E66.01 - Morbid (severe) obesity due to excess calories H Pylori Breath Test Today E66.01 - Morbid (severe) obesity due to excess calories Comprehensive Met. Panel Today E66.01 - Morbid (severe) obesity due to excess calories C Reactive Protein Today E66.01 - Morbid (severe) obesity due to excess calories Vitamin A Today E66.01 - Morbid (severe) obesity due to excess calories TSH reflex Free T4 Today E66.01 - Morbid (severe) obesity due to excess calories Ferritin Today E66.01 - Morbid (severe) obesity due to excess calories ECG 12 lead EKG Today E66.01 - Morbid (severe) obesity due to excess calories Referrals Behavioral Health Referral E66.01 - Morbid (severe) obesity due to excess calories Nutrition/Dietitian Referral E66.01 - Morbid (severe) obesity due to excess calories
[2024-11-03 12:59] VITALS: BMI 47.1
== END 2024-11-03 13:22 | disposition home or self-care (01) ==
LOC: HO.HBS 08:01
PROVIDERS: PCP Nurse Practitioner Family; Visit Provider Surgery
DX: E66.01 Morbid (severe) obesity due to excess calories (principal); E66.813 Obesity, class 3; Z68.42 Body mass index [BMI] 45.0-49.9, adult
CPT/HCPCS: 99203

== ENCOUNTER → 2024-11-03 08:00 | Outpatient (BNVA) | payer OTHER, SELFPAY | PROVIDERS: PCP Nurse Practitioner Family; Visit Provider Surgery ==

== ENCOUNTER 2025-01-14 16:53 | Emergency (ER) | payer OTHER, SELFPAY ==
--- NOTE | ~2025-01-14 | CT_ITS ---
CLINICAL HISTORY: Right lower quadrant abdominal pain CT abdomen and pelvis with contrast Comparison: None Findings: The lung bases are clear. The liver, gallbladder, pancreas, spleen, adrenal glands, and kidneys are unremarkable. The appendix is normal. The remainder of the gastrointestinal tract is unremarkable. There is no free fluid or free air. The aorta and IVC are normal. There are no enlarged lymph nodes. Uterus and adnexa are unremarkable. The bladder is decompressed. There is no fracture or suspicious lytic or sclerotic lesion. IMPRESSION: Unremarkable CT of the abdomen and pelvis. This document has been electronically signed by: Lex Earl MD on 01/15/2025 01:44:55
[2025-01-14 17:12] VITALS: BP 125/62; PULSE 80; RESP 16; TEMP 36.7; O2SAT 98; BMI 46.0
--- NOTE | 2025-01-14 17:12 | ED_ITS ---
HPI - Abdominal Pain General Chief Complaint: Abdominal Pain Stated Complaint: sent from UC, R side abdominal pain Time Seen by Provider: 01/14/25 20:16 Related Data Previous Rx's ?Medication ?Instructions ?Recorded cephalexin 500 mg capsule 500 mg PO Q8H 7 days #21 caps 01/15/25 Allergies Allergy/AdvReac Type Severity Reaction Status Date / Time No Known Allergies Allergy Verified 01/14/25 17:14 [No Known Allergies*] PMFSH Past Medical History Medical History Morbid obesity Stomach ulcer Surgical History Hx of endoscopy Family History Family History Maternal Grandfather Alcohol abuse Brother Asthma Paternal Grandfather Diabetes Son No problems noted. Mother No problems noted. Father Hypertension Social History Social History Housing: Apartment Patient Tobacco Use Status: Never used Tobacco e-Cigarette/Vaping Use: Never Used Second Hand Smoke Exposure: No Advance Directives: No Advance Directives Information Provided: Yes service: No Current occupational status: employed Current occupation: [employer] Current occupational exposures/hazards: No Cognitive needs: No Hearing needs: No Vision needs: Yes Physical Exam ED Vital Signs: Vital Signs - 24 hr 01/14/25 17:12 01/14/25 19:34 01/14/25 21:53 Temperature 98.1 F 97.9 F 98.4 F Pulse Rate 80 74 86 Respiratory Rate 16 16 16 Blood Pressure 125/62 122/68 104/56 L Pulse Oximetry 98 99 99 Oxygen Delivery Method Room Air Room Air Room Air 01/14/25 22:00 01/15/25 00:47 Temperature 97.0 F 98.4 F Pulse Rate 74 68 Respiratory Rate 16 16 Blood Pressure 110/77 116/62 Pulse Oximetry 99 98 Oxygen Delivery Method Room Air Room Air BMI result Body Mass Index 46.0 Course Course Course Narrative: This is a Rapid Medical Exam performed in triage by Mary Beth Woodall PA-C. Full HPI, ROS and PE to be performed by primary ED provider. 24 yo F presenting to the ED c/o RLQ abdominal pain, N/V, decreased appetite x4 days. Had CT scan at [address] [facility] ordered from in [facility] that was negative on Sunday. denies fever, urinary/vaginal sx PE: abd soft w/RLQ ttp. No rebound or guarding Plan: labs, UA Medical Decision Making Lab Data 01/14/25 17:20 01/14/25 17:20 Labs: Lab Results 01/14/25 01/14/25 Range/Units 17:20 19:38 WBC 7.7 (4.8-10.8) X10*3/uL RBC 5.25 (4.20-5.50) X10*6/uL Hgb 13.7 (12.0-16.0) g/dl Hct 42.9 (37.0-47.0) % MCV 81.7 (80.0-98.0) fL MCH 26.1 L (27.0-33.0) pg MCHC 31.9 (31.0-35.0) g/dl RDW 14.6 (11.0-16.0) % Plt Count 257 (160-400) X10*3/uL MPV 11.1 (9.4-12.3) fL Immature Gran % (Auto) 0.3 (0.0-0.4) % Neut % (Auto) 60.5 (45-73) % Lymph % (Auto) 28.8 (20-40) % [place] % (Auto) 7.1 (2-11) % Eos % (Auto) 2.7 (0-4) % Baso % (Auto) 0.6 (0-2) % Lymph # (Auto) 2.2 (1.2-4.9) X10*3/uL [place] # (Auto) 0.6 (0.1-1.2) X10*3/uL Eos # (Auto) 0.2 (0.0-0.4) X10*3/uL Baso # (Auto) 0.1 (0.0-0.2) X10*3/uL Abs Immat Gran (auto) 0.02 (0.00-0.03) X10*3/uL Absolute Neuts (auto) 4.7 (2.0-8.3) x10*3/uL Absolute Nucleated RBC 0.000 (0.0-0.012) X10*3/uL Nucleated RBC % (auto) 0.0 (0.0-0.2) /100WBC Sodium 141 (135-145) mmol/L Potassium 4.3 (3.3-5.1) mmol/L Chloride 108 (96-108) mmol/L Carbon Dioxide 25 (22-29) mmol/L Anion Gap 12 (12-20) BUN 17 H (9-16) mg/dL Creatinine 0.80 (0.5-1.4) mg/dL Estim Creat Clear Calc 145.7 Estimated GFR > 60 Random Glucose 92 (60-115) mg/dL Calcium 9.5 (8.4-10.2) mg/dL Magnesium 2.0 (1.6-2.6) mg/dL Total Bilirubin 0.4 (0.0-1.0) mg/dL Direct Bilirubin 0.2 (0.0-0.5) mg/dL AST 66 H (5-31) U/L ALT 96 H (0-31) U/L Alkaline Phosphatase 108 (39-117) U/L Total Protein 7.7 (6.5-8.0) g/dL Albumin 4.6 (3.5-5.0) g/dL Lipase 10 (8-78) U/L Urine Color Dark Yellow Urine Appearance Cloudy Urine pH 5.5 (5.0-9.0) Ur Specific [employer] Mdl >= 1.030 H (1.005-1.025) Urine Protein Trace (Neg-Trace) mg/dL Urine Glucose (UA) Negative (Negative) mg/dL Urine Ketones Trace (Negative) mg/dL Urine Blood Negative (Negative) Urine Nitrite Negative (Negative) Ur Leukocyte Esterase Small (1+) H (Negative) Urine RBC 0-2 (0-2) /HPF Urine WBC 21-50 H (0-5) /HPF Ur Squamous Epith Cells 11-20 (0-2) /HPF Urine Bacteria 3+ (None Seen) Hyaline Casts 0-2 (0-2) /LPF Urine Test NEGATIVE (NEGATIVE) Medications Administered Discontinued Medications Generic Name Dose Route Start Last Admin Trade Name Freq PRN Reason Stop Dose Admin Iohexol 100 ml 01/15/25 00:24 01/15/25 00:24 Iohexol 350 Mg/Ml 100 Ml Infus..Btl IV 01/15/25 00:25 100 ml ONCE ONE Administration Discharge Plan Discharge Clinical Impression: Abdominal pain, Urinary tract infection Patient Disposition: Home, Self-Care Instructions: Urinary Tract Infection in Women (DC), Abdominal Pain (ED) Prescriptions: New cephalexin 500 mg capsule 500 mg PO Q8H 7 Days Qty: 21 0RF Referrals: Physician,Angela J [Primary Care Provider] - 01/19/25 Print Language: Citizen Of [place]
[2025-01-14 17:23] LABS: MANUAL DIFF FLAG NO
[2025-01-14 17:25] LABS: Basophils Absolute Auto 0.1 X10*3/uL (0.0-0.2); Basophils Percent Auto 0.6 % (0-2); Eosinophils Absolute Auto 0.2 X10*3/uL (0.0-0.4); Eosinophils Percent Auto 2.7 % (0-4); Hematocrit 42.9 % (37.0-47.0); Hemoglobin 13.7 g/dl (12.0-16.0); Imm Gran Abs Auto 0.02 X10*3/uL (0.00-0.03); Imm Gran Pct Auto 0.3 % (0.0-0.4); Lymphocytes Absolute Auto 2.2 X10*3/uL (1.2-4.9); Lymphocytes Percent Auto 28.8 % (20-40); Mean Corpuscular HGB Conc 31.9 g/dl (31.0-35.0); Mean Corpuscular Hemoglobin 26.1 pg (27.0-33.0); Mean Corpuscular Volume 81.7 fL (80.0-98.0); Mean Platelet Volume 11.1 fL (9.4-12.3); Monocytes Absolute Auto 0.6 X10*3/uL (0.1-1.2); Monocytes Percent Auto 7.1 % (2-11); Neutrophils Absolute Auto 4.7 x10*3/uL (2.0-8.3); Neutrophils Percent Auto 60.5 % (45-73); Platelet Count 257 X10*3/uL (160-400); Red Blood Count 5.25 X10*6/uL (4.20-5.50); Red Cell Distribution Width 14.6 % (11.0-16.0); White Blood Count 7.7 X10*3/uL (4.8-10.8)
[2025-01-14 17:39] LABS: Alanine Aminotransferase 96 U/L (0-31); Albumin Level 4.6 g/dL (3.5-5.0); Alkaline Phosphatase 108 U/L (39-117); Anion Gap 12 (12-20); Aspartate Amino Transferase 66 U/L (5-31); Bilirubin Direct 0.2 mg/dL (0.0-0.5); Bilirubin Total 0.4 mg/dL (0.0-1.0); Blood Urea Nitrogen 17 mg/dL (9-16); Calcium 9.5 mg/dL (8.4-10.2); Carbon Dioxide 25 mmol/L (22-29); Chloride 108 mmol/L (96-108); Creatinine Clr Calc Pharmacy 145.7; Estimated Glomerular Filt Rate > 60; Glucose Random 92 mg/dL (60-115); Lipase 10 U/L (8-78); Potassium 4.3 mmol/L (3.3-5.1); Sodium 141 mmol/L (135-145); Total Protein 7.7 g/dL (6.5-8.0)
[2025-01-14 19:34] VITALS: BP 122/68; PULSE 74; RESP 16; TEMP 36.6; O2SAT 99
--- NOTE | 2025-01-14 19:38 | PC.NURSE ---
Patient presents with c/o RLQ abdominal pain which began on Sunday with assoc N/V/D, symptoms subsided yesterday and started again today. Patient was seen at [facility] and left to be seen at . CT obtained and results were negative. Patient sent for further testing in this ED. Lungs clear bilat. Respirations even and non-labored. Abdomen soft with positive bowel sounds. c/o RLQ abdominal pain. Denies any urinary symptoms. No LE edema noted. Pending provider sherly.
[2025-01-14 19:44] LABS: Appearance Urine Cloudy; Color Urine Dark Yellow; Glucose Urine UA Negative (Negative); Leukocyte Esterase Urine Small (1+) (Negative); Nitrite Urine Negative (Negative); PH 5.5 (5.0-9.0); Specific Gravity - Urine >= 1.030 (1.005-1.025); UMIC TRIGGER UACC YES; Urine Blood Negative (Negative); Urine Ketones Trace mg/dL (Negative); Urine Protein Trace mg/dL (Neg-Trace)
--- OUTSIDE RECORDS SUMMARY | 2025-01-14 19:47 | XMS_ITS | Clinical Summary ---
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 Name Role Phone Physician, No Pcp Primary Care Provider Unavaila ble Allergies No known active allergies Encounters Date Type Department Care Team Description 01/14/2025 10:08 AM EDT - 01/14/2025 7:02 PM EDT Emergency [facility] Emergency [address] [place] [address] Discharge Disposition: Home or Self Care from Last 3 Months Social History Tobacco Use Types Packs/Day Years Used Date Smoking Tobacco: Never Assessed Comments Unknown Sex and Gender Information Value Date Recorded Sex Assigned at Not on file Legal Sex Female 3:19 PM EST Gender Identity Not on file Sexual Orientation Not on file Last Filed Vital Signs Vital Sign Reading Time Taken Comments Blood Pressure 129/79 01/14/2025 10:20 AM EDT Pulse 62 01/14/2025 10:20 AM EDT Temperature 36.7 ??C (98.1 ??F) 01/14/2025 10:20 AM E DT Respiratory Rate 18 01/14/2025 10:20 AM EDT Oxygen Saturation 98% 01/14/2025 10:20 AM EDT Inhaled Oxygen Concentration - - Weight 125 kg (276 lb) 01/14/2025 10:20 AM EDT Height 165.1 cm (5' 5 ) 01/14/2025 10:20 AM EDT Body Mass Index 45.93 01/14/2025 10:20 AM EDT Plan of Treatment Health Maintenance Due Date Last Done Comments Gonorrhea/Chlamydia Screening 2001 Meningococcal B Vaccine (1 of 2 - Standard) 2017 Depression Screening 08/23/2022 HIV Screening 08/23/2022 Hepatitis C Screening 08/23/2022 Social Influencers of Health Screening 08/23/2022 Cervical Cancer Screening: Pap Smear 2022 COVID-19 Vaccine ( season) 2024 01/31/2021, 01/10/2021 DTaP,Tdap,and Td Vaccines (8 - Td or Tdap) 10/03/2033 10/03/2023, 11/28/2013, 02/01/2007, Additional history exists Hepatitis B Vaccines Completed 10/06/2002, 01/31/2002, 2001 HIB Vaccines Completed 04/03/2003, 12/2001, 05/16/2002, Additional history exists Pneumococcal Vaccine: Pediatrics (0 to 5 Years) and At-Risk Patients (6 to 64 Years) Completed 04/03/2003, 05/16/2002, 02/28/2002 IPV Vaccines Completed 02/01/2007, 06/24, 05/16/2002, Additional history exists Varicella Vaccines Completed 02/01/2007, 2002 Meningococcal ACWY Vaccine Aged Out 11/28/2013 N o longer eligible based on patient's age to complete this topic HPV Vaccines Completed 06/01/2014, 04/2014, 11/28/2013 Hepatitis A Vaccines Completed 02/11/2018, 07/11/20 MMR Vaccines Completed 11/29/2023, 01/22, 04/03/2003 Influenza Vaccine Completed 09/19/2024, , 07/11/2017, Additional history exists RSV Immunization Patients Under 20 months Aged Out No longer eligible based on patient's age to complete this topic Procedures Procedure Name Priority Date/Time Associated Diagnosis Comments CBC WITH AUTO DIFFERENTIAL STAT 01/14/2025 11:36 AM EDT COMPREHENSIVE METABOLIC PANEL STAT 01/14/2025 11:36 AM EDT CBC AND DIFFERENTIAL STAT 01/14/2025 11:36 AM EDT from Last 3 Months Results * (ABNORMAL) CBC auto differential (01/14/2025 11:36 AM EDT) WBC 6.4 4.8 - 10.8 /[facility] LAB HEMETOLOGY METHOD 01/14/2025 12:06 PM [facility] RBC 5.10(H) 3.80 - 4.80 M/mcL LAB HEMETOLOGY METHOD 01/14/2025 12:06 PM [facility] Hemoglobin 13.3 11.5 - 16.0 g/dL LAB HEMETOLOGY METHOD 01/14/2025 12:06 PM [facility] Hematocrit 42.7 35.0 - 47.0 % LAB HEMETOLOGY METHOD 01/14/2025 12:06 PM [facility] MCV 83.7 79.0 - 98.0 FL LAB HEMETOLOGY METHOD 01/14/2025 12:06 [facility] MCH 26.1(L) 27.0 - 32.0 pcg LAB HEMETOLOGY METHOD 01/14/2025 12:06 PM [facility] MCHC 31.1(L) 32.0 - 37.0 g/dL LAB HEMETOLOGY METHOD 01/14/2025 12:06 [facility] RDW 14.4 11.0 - 15.0 % LAB HEMETOLOGY METHOD 01/14/2025 12:06 [facility] Platelets 269 130 - 400 K/mcL LAB HEMETOLOGY METHOD 01/14/2025 12:06 PM [facility] MPV 11.8(H) 7.0 - 11.0 FL LAB HEMETOLOGY METHOD 01/14/2025 12:06 PM [facility] NRBC 0.0 <1.0 % LAB HEMETOLOGY METHOD 01/14/2025 12:06 PM [facility] NRBC Absolute 0.00 <0.10 K/mcL LAB HEMETOLOGY METHOD 01/14/2025 12:06 PM [facility] Neutrophils Relative 59.1 % LAB HEMETOLOGY METHOD 01/14/2025 12:06 PM [facility] Lymphocytes Relative 28.9 % LAB HEMETOLOGY METHOD 01/14/2025 12:06 PM [facility] Monocytes Relative 7.7 % LAB HEMETOLOGY METHOD 01/14/2025 12:06 PM [facility] Eosinophils Relative 3.4 % LAB HEMETOLOGY METHOD 01/14/2025 12:06 PM [facility] Basophils Relative 0.6 % LAB HEMETOLOGY METHOD 01/14/2025 12:06 PM [facility] Immature Granulocytes Relative 0.3 % LAB HEMETOLOGY METHOD 01/14/2025 12:06 PM [facility] Neutrophils Absolute 3.78 1.50 - 7.00 K/mcL LAB HEMETOLOGY METHOD 01/14/2025 12:06 PM [facility] Lymphocytes Absolute 1.85 1.00 - 5.00 K/mcL LAB HEMETOLOGY METHOD 01/14/2025 12:06 PM [facility] Monocytes Absolute 0.49 0.20 - 1.00 K/mcL LAB HEMETOLOGY METHOD 01/14/2025 12:06 PM [facility] Eosinophils Absolute 0.22 0.00 - 0.50 K/mcL LAB HEMETOLOGY METHOD 01/14/2025 12:06 PM [facility] Basophils Absolute 0.04 0.00 - 0.20 K/mcL LAB HEMETOLOGY METHOD 01/14/2025 12:06 PM [facility] Immature Granulocytes Absolute 0.02 0.00 - 0.03 K/mcL LAB HEMETOLOGY METHOD 01/14/2025 12:06 PM [facility] Blood Venous blood specimen / Unknown Venipuncture / Unknown 01/14/2025 11:36 AM EDT 01/14/2025 11:43 AM EDT us Ambrose Camara MD LAB BLOOD ORDERABLES Final Res ult [facility] [address] [place] [address], [place] [phone] * (ABNORMAL) Comprehensive metabolic panel (01/14/2025 11:36 AM EDT) Sodium 140 133 - 145 mmol/L LAB CHEMISTRY METHOD 01/14/2025 12:14 PM [facility] Potassium 4.5 3.5 - 5.5 mmol/L LAB CHEMISTRY METHOD 01/14/2025 12:14 PM [facility] Chloride 109 96 - 110 mmol/L LAB CHEMISTRY METHOD 01/14/2025 12:14 PM [facility] CO2 24 21 - 32 mmol/L LAB CHEMISTRY METHOD 01/14/2025 12:14 PM [facility] Anion Gap 7 3 - 11 LAB CHEMISTRY METHOD 01/14/2025 12:14 PM [facility] Glucose 84 70 - 100 mg/dL LAB CHEMISTRY METHOD 01/14/2025 12:14 PM [facility] BUN 17 5 - 25 mg/dL LAB CHEMISTRY METHOD 01/14/2025 12:14 PM [facility] Creatinine 0.80 0.50 - 1.10 mg/dL LAB CHEMISTRY METHOD 01/14/2025 12:14 PM [facility] eGFR 106 >=60 mL/min/1. 73m2 LAB CHEMISTRY METHOD 01/14/2025 12:14 PM [facility] Comment:Calculation based on the??Chronic Kidney Disease Epidemiology Collaboration (CKD-EPI) equation refit??without adjustment for race. BUN/Creatinine Ratio 21.3 LAB CHEMISTRY METHOD 01/14/2025 12:14 PM [facility] Calcium 9.0 8.5 - 10.5 mg/dL LAB CHEMISTRY METHOD [facility]/14[facility]2025 [facility] AST (SGOT) 64(H) 10 - 42 unit/L LAB CHEMISTRY METHOD 01/14/2025 12:14 PM [facility] ALT (SGPT) 88(H) 10 - 60 unit/L LAB CHEMISTRY METHOD 01/14/2025 12:14 PM [facility] Alkaline Phosphatase 118 42 - 121 unit/L LAB CHEMISTRY METHOD 01/14/2025 12:14 PM [facility] Total Protein 7.7 6.0 - 8.0 g/dL LAB CHEMISTRY METHOD 01/14/2025 12:14 PM [facility] Albumin 4.1 3.2 - 5.0 g/dL LAB CHEMISTRY METHOD 01/14/2025 12:14 PM [facility] Total Bilirubin 0.4 0.0 - 1.4 mg/dL LAB CHEMISTRY METHOD 01/14/2025 12:14 PM [facility] Blood Venous blood specimen / Unknown Venipuncture / Unknown 01/14/2025 11:36 AM EDT 01/14/2025 11:43 AM EDT us Ambrose Camara MD LAB BLOOD ORDERABLES Final Res ult [facility] [address] [place] [address], from Last 3 Months Insurance [facility] Care Teams Physics And Astronomy Professor Relationship Specialty Start Date End Date Physician, No Pcp PCP - General 01/14/25
[2025-01-14 19:56] LABS: UPreg QC Valid YES; Urine Pregnancy NEGATIVE (NEGATIVE)
[2025-01-14 19:57] LABS: Bacteria Urine 3+ (None Seen); Hyaline Casts Urine 0-2 /LPF (0-2); RBC Urine 0-2 /HPF (0-2); UACC Culture Trigger YES; WBC Urine 21-50 /HPF (0-5)
--- NOTE | 2025-01-14 21:33 | ED.ABDPAIN ---
HPI - Abdominal Pain General Chief Complaint: Abdominal Pain Stated Complaint: sent from , R side abdominal pain Time Seen by Provider: 01/14/25 20:16 History of Present Illness HPI narrative: Patient is a 24-year-old female with a history of abdominal pain nausea vomiting ongoing for the last 5 days. Went to urgent Care was sent to the ED for further evaluation the pain is on the right side patient had a CT scan done on Sunday without IV or oral contrast. It was done on an outpatient basis patient was told there was grossly negative. Her last menstrual period was January 04. Patient does not think she is . There is no pain on urination. There is no vomiting. There is nausea. This generalized malaise. Patient is from home. There was no coughing or congestion or upper respiratory symptoms. There is no vaginal discharge. Patient is from home. No abdominal surgery done in the past. Related Data Previous Rx's ?Medication ?Instructions ?Recorded cephalexin 500 mg capsule 500 mg PO Q8H 7 days #21 caps 01/15/25 Allergies Allergy/AdvReac Type Severity Reaction Status Date / Time No Known Allergies Allergy Verified 01/14/25 17:14 [No Known Allergies*] Review of Systems Review of Systems Positive abdominal pain in the right lower quadrant Yes all other systems are reviewed and are negative PMFSH Past Medical History Attestation statement: The following information was validated with the patient. Medical History Morbid obesity Stomach ulcer Surgical History Hx of endoscopy Family History Family History Maternal Grandfather Alcohol abuse Brother Asthma Paternal Grandfather Diabetes Son No problems noted. Mother No problems noted. Father Hypertension Social History Social History Housing: Apartment Patient Tobacco Use Status: Never used Tobacco e-Cigarette/Vaping Use: Never Used Second Hand Smoke Exposure: No Advance Directives: No Advance Directives Information Provided: Yes service: No Current occupational status: employed Current occupation: [employer] Current occupational exposures/hazards: No Cognitive needs: No Hearing needs: No Vision needs: Yes Physical Exam ED Vital Signs: Vital Signs - 24 hr 01/14/25 17:12 01/14/25 19:34 01/14/25 21:53 Temperature 98.1 F 97.9 F 98.4 F Pulse Rate 80 74 86 Respiratory Rate 16 16 16 Blood Pressure 125/62 122/68 104/56 L Pulse Oximetry 98 99 99 Oxygen Delivery Method Room Air Room Air Room Air 01/14/25 22:00 01/15/25 00:47 Temperature 97.0 F 98.4 F Pulse Rate 74 68 Respiratory Rate 16 16 Blood Pressure 110/77 116/62 Pulse Oximetry 99 98 Oxygen Delivery Method Room Air Room Air BMI result Body Mass Index 46.0 Appearance: Alert. Oriented X3. No acute distress. Eyes: Pupils equal, round and reactive to light. ENT: Pharynx normal. Neck: Normal inspection. Neck supple. No lymph nodes noted. No crepitus CVS: Normal heart rate and rhythm. Pulses normal. Normal S1 and S2 Respiratory: No respiratory distress. Breath sounds normal. No Wheezing. No rales Abdomen: Soft and nontender. No rigidity. No distention. good BS x4 Skin: Skin warm and dry. Normal skin color. Normal skin turgor. Extremities: No lower extremity edema. Neurovascular intact to all extremities. No Lacerations. No Rash Neuro: Oriented X 3. No motor deficit. No sensory deficit. Moving all extermities. No slurred speech Medical Decision Making Medical Decision Making [facility] Narrative: Patient complaining of right left-sided low abdominal pain. No fever no chills. But symptoms not improving getting worse. Elected to do a CT abdomen pelvis with IV contrast patient's white count was normal electrolytes are unremarkable LFTs are normal urine showed no signs of infection will discharge patient home test was negative in stable condition. Differential Diagnosis Differential Diagnoses: The differential diagnosis associated with the presentation includes Admission/Observation Consideration of admission/observation: Escalation of care including admission/observation considered Lab Data [facility] Lab Attestation statement: I reviewed the patient's lab results. 01/14/25 17:20 01/14/25 17:20 Labs: Lab Results 01/14/25 01/14/25 Range/Units 17:20 19:38 WBC 7.7 (4.8-10.8) X10*3/uL RBC 5.25 (4.20-5.50) X10*6/uL Hgb 13.7 (12.0-16.0) g/dl Hct 42.9 (37.0-47.0) % MCV 81.7 (80.0-98.0) fL MCH 26.1 L (27.0-33.0) pg MCHC 31.9 (31.0-35.0) g/dl RDW 14.6 (11.0-16.0) % Plt Count 257 (160-400) X10*3/uL MPV 11.1 (9.4-12.3) fL Immature Gran % (Auto) 0.3 (0.0-0.4) % Neut % (Auto) 60.5 (45-73) % Lymph % (Auto) 28.8 (20-40) % [place] % (Auto) 7.1 (2-11) % Eos % (Auto) 2.7 (0-4) % Baso % (Auto) 0.6 (0-2) % Lymph # (Auto) 2.2 (1.2-4.9) X10*3/uL [place] # (Auto) 0.6 (0.1-1.2) X10*3/uL Eos # (Auto) 0.2 (0.0-0.4) X10*3/uL Baso # (Auto) 0.1 (0.0-0.2) X10*3/uL Abs Immat Gran (auto) 0.02 (0.00-0.03) X10*3/uL Absolute Neuts (auto) 4.7 (2.0-8.3) x10*3/uL Absolute Nucleated RBC 0.000 (0.0-0.012) X10*3/uL Nucleated RBC % (auto) 0.0 (0.0-0.2) /100WBC Sodium 141 (135-145) mmol/L Potassium 4.3 (3.3-5.1) mmol/L Chloride 108 (96-108) mmol/L Carbon Dioxide 25 (22-29) mmol/L Anion Gap 12 (12-20) BUN 17 H (9-16) mg/dL Creatinine 0.80 (0.5-1.4) mg/dL Estim Creat Clear Calc 145.7 Estimated GFR > 60 Random Glucose 92 (60-115) mg/dL Calcium 9.5 (8.4-10.2) mg/dL Magnesium 2.0 (1.6-2.6) mg/dL Total Bilirubin 0.4 (0.0-1.0) mg/dL Direct Bilirubin 0.2 (0.0-0.5) mg/dL AST 66 H (5-31) U/L ALT 96 H (0-31) U/L Alkaline Phosphatase 108 (39-117) U/L Total Protein 7.7 (6.5-8.0) g/dL Albumin 4.6 (3.5-5.0) g/dL Lipase 10 (8-78) U/L Urine Color Dark Yellow Urine Appearance Cloudy Urine pH 5.5 (5.0-9.0) Ur Specific [place] >= 1.030 H (1.005-1.025) Urine Protein Trace (Neg-Trace) mg/dL Urine Glucose (UA) Negative (Negative) mg/dL Urine Ketones Trace (Negative) mg/dL Urine Blood Negative (Negative) Urine Nitrite Negative (Negative) Ur Leukocyte Esterase Small (1+) H (Negative) Urine RBC 0-2 (0-2) /HPF Urine WBC 21-50 H (0-5) /HPF Ur Squamous Epith Cells 11-20 (0-2) /HPF Urine Bacteria 3+ (None Seen) Hyaline Casts 0-2 (0-2) /LPF Urine Test NEGATIVE (NEGATIVE) Radiology Impression Discussion of test interpretation with radiology: I have reviewed the radiologist's reading. Medications Administered Discontinued Medications Generic Name Dose Route Start Last Admin Trade Name Freq PRN Reason Stop Dose Admin Iohexol 100 ml 01/15/25 00:24 01/15/25 00:24 Iohexol 350 Mg/Ml 100 Ml Infus..Btl IV 01/15/25 00:25 100 ml ONCE ONE Administration Discharge Plan Discharge Clinical Impression: Abdominal pain, Urinary tract infection Patient Disposition: Home, Self-Care Instructions: Abdominal Pain (ED), Urinary Tract Infection in Women (DC) Prescriptions: New cephalexin 500 mg capsule 500 mg PO Q8H 7 Days Qty: 21 0RF Referrals: Physician,Unknown J [Primary Care Provider] - 01/19/25 Print Language: Norwegian
[2025-01-14 21:53] VITALS: BP 104/56; PULSE 86; RESP 16; TEMP 36.9; O2SAT 99
[2025-01-14 22:00] VITALS: BP 110/77; PULSE 74; RESP 16; TEMP 36.1; O2SAT 99
--- NOTE | 2025-01-14 22:00 | PC.NURSE ---
PO contrast provided
--- NOTE | 2025-01-14 23:00 | PC.NURSE ---
this rn assumed care of pt a t 2300, pt finished oral contrast at this time, plan to scan pt around midnight per provider. pt offers no complaints at this time.
[2025-01-15] MEDS: iohexoL 350 MG/ML 100 ML INFUS..BTL IV (00:24)
[2025-01-15 00:47] VITALS: BP 116/62; PULSE 68; RESP 16; TEMP 36.9; O2SAT 98
[2025-01-15] MEDS: cephALEXin 500 MG CAPSULE PO (02:03)
[2025-01-15 02:06] VITALS: BP 134/78; PULSE 78; RESP 18; TEMP 36.9; O2SAT 98
[2025-01-15 02:07] VITALS: BP 134/78; PULSE 78; RESP 18; TEMP 36.9; O2SAT 98
== END 2025-01-15 02:08 | disposition home or self-care (01) ==
PROVIDERS: Physician Assistant; Emergency Provider Emergency Medicine Emergency Medical Services
DX: N39.0 Urinary tract infection, site not specified (principal); R10.9 Unspecified abdominal pain
CPT/HCPCS: 36415; 74177; 80048; 80076; 81001; 81025; 83690; 83735; 85025; 87086; 99284; 99285; Q9967

== ENCOUNTER → 2025-01-15 | Outpatient (BNV) | payer OTHER, SELFPAY | PROVIDERS: Emergency Provider Emergency Medicine Emergency Medical Services; Visit Provider Radiology Diagnostic Radiology | DX: R10.31 Right lower quadrant pain (principal) | CPT/HCPCS: 74177 ==

== ENCOUNTER 2025-05-12 10:35 | Outpatient (AMB) | payer OTHER, SELFPAY ==
--- NOTE | 2025-05-12 10:37 | A.OFFPC_ITS ---
Vital Signs 05/12/25 10:43 Height 5 ft 5 in Weight 280 lb 8 oz BMI 46.7 BP 121/58 L Blood Pressure Location Lt brachial Position Sitting Respiration 16 Pulse 77 Pulse Source Pulse Oximeter Temp 98.1 F Temp Source Oral Pulse Oximetry (%) 99 Oxygen Delivery Method Room Air Intake Visit Reasons: Weight concern Intake Note: patient here to speak about weight loss medication Adult Basic Education Manager Required: No Is last menstrual period known: Yes Last menstrual period: 02/15/25 Post menopausal: No Patient : No Allergies No Known Allergies (No Known Allergies*) Allergy (Verified 05/12/25 10:50) Medication List - Last Reconciled 05/12/25 by Jewels Flowers CNP No Known Home Meds Tobacco use date assessed: 05/12/25 Dental Screening Dental Screen Date: 05/12/25 Did you have a dental visit in the last 12 months?: No Did you have a dental problem in the last 6 months where you did not have access to dental care?: No Was dental information given to patient?: Yes HPI HPI Comments History of Present Illness Details 24-year-old female presents for weight m anagement follow-up. She notes that she has been making healthy dietary choices and exercising routinely. However, her weight fluctuates. She was to get on GLP1 for weight management. She lost 8 lb since her last visit in August 2024. She had the virtual visit with [facility] weight management clinic in 11/03/2024, gastric sleeve was discussed, but patient opted out as she want to have children later on. [facility] Medical History Morbid obesity Stomach ulcer Surgical History Hx of endoscopy Family History Maternal Grandfather Alcohol abuse Brother Asthma Paternal Grandfather Diabetes Son No problems noted. Mother No problems noted. Father Hypertension Social History Housing: Apartment Patient Tobacco Use Status: Never used Tobacco e-Cigarette/Vaping Use: Never Used Second Hand Smoke Exposure: No service: No Current occupational status: employed Current occupation: [employer] Current occupational exposures/hazards: No Cognitive needs: No Hearing needs: No Vision needs: Yes Female Reproductive History Menstrual Date of last menstrual period: 02/15/25 Questionnaire PHQ-9 Over the last 2 weeks, how often have you been bothered by any of the following problems? 1. Little interest or pleasure in doing things: not at all 2. Feeling down, depressed, or hopeless: several days 3. Trouble falling or staying asleep, or sleeping too much: several days 4. Feeling tired or having little energy: several days 5. Poor appetite or overeating: several days 6. Feeling bad about yourself - or that you are a failure or have let yourself or your family down: not at all 7. Trouble concentrating on things, such as reading the newspaper or watching television: not at all 8. Moving or speaking so slowly that other people could have noticed. Or the opposite - being so fidgety or restless that you have been moving around a lot more than usual: not at all 9. Thoughts that you would be better off or of hurting yourself in some way: not at all Total score: 4 Depression Screening Interpretation: Negative Depression Screening Done: Yes Source: Developed by Drs. Rigoberto Whatley, Rosalinda Carmichael, Josué Duarte and colleagues, with an educational sania from [employer]. Thrive Questionnaire Date Thrive assessed: 05/05/25 I am a: Patient What is your living situation today?: I have a steady place to live Within the past 12 months, did the food you bought not last and you didn't have the money to get more?: Never true Within the past 12 months, did you worry whether your food would run out before you got money to buy more?: Never true Do you have trouble paying for medicines?: No Do you have trouble getting transportation to medical appointments?: No Do you have trouble paying your heating and electricity bill?: No Do you have trouble taking care of your child, family member or friend?: No Do you have trouble with day-to-day activities such as bathing, preparing meals, shopping, managing finances, etc.?: No Are you currently unemployed and looking for a job?: No Are you interested in more education?: Yes Please select the resources that you would like help with: None Currently or been in a relationship where the following occur: No concerns reported THRIVE Score: 0 AUDIT C Alcohol Use Questionnaire (AUDIT-C) 1. How often do you have a drink containing alcohol?: Never 2. How many drinks containing alcohol do you have on a typical day when you are drinking?: 1 or 2 Total Score: 0 Score Reviewed/Action Taken: Yes SOSA-7 AMB Questionnaire SOSA-7 Date SOSA - 7 assessed: 09/19/24 Feeling nervous, anxious, or on edge: 0 = Not at all Not being able to stop or control worryin = Not at all Worrying too much about different things: 0 = Not at all Trouble relaxin = Not at all Being so restless that it is hard to sit still: 0 = Not at all Becoming easily annoyed or irritable: 0 = Not at all Feeling afraid as if something awful might happen: 0 = Not at all Total SOSA-7 score (0-4 normal; 5-9 mild; 10-14 moderate; 15-21 severe): 0 Source: Developed by Drs. Rigoberto Whatley, Rosalinda Carmichael, Josué Duarte and colleagues, with an educational sania from [employer]. Review of Systems Const Details: Const Denies chills, Denies fatigue, Denies fever(s), Denies headache(s) and Denies weakness ENT Denies dizziness and Denies headache(s) Card Denies chest pain, Denies lightheadedness, Denies dyspnea and Denies other (Palpitations) Resp Denies cough, Denies dyspnea, Denies wheezing and Denies other ( shortness of breath) GI Denies abdominal pain, Denies melena, Denies hematochezia, Denies change in bowel habits, Denies dyspepsia and Denies nausea Denies hematuria and Denies dysuria Musc Denies abnormal gait, Denies myalgias, Denies arthralgias, Denies numbness and Denies tingling Skin/Breast Denies rash, Denies unusual bruising and Denies wounds Neuro Denies abnormal gait, Denies dizziness, Denies headache(s), Denies memory loss, Denies numbness, Denies Sensory deficit (Neuro), Denies tingling and Denies weakness Psych Denies anxiety, Denies depression, Denies memory loss Endo Denies cold intolerance, Denies fatigue, Denies heat intolerance, Denies polydipsia and Denies polyuria Aller/Immun Denies wheezing Physical exam (Primary Care) Vital Signs: Last Vital Signs Temp 98.1 F 05/12/25 10:43 Pulse 77 05/12/25 10:43 Resp 16 05/12/25 10:43 BP 121/58 L 05/12/25 10:43 Pulse Ox 99 05/12/25 10:43 Oxygen Delivery Method Room Air 05/12/25 10:43 BMI result Body Mass Index 46.7 Tobacco/Smoking Status: Tobacco use Status Tobacco use date assessed 05/12/25 05/12/25 10:46 Patient Tobacco Use Status Never used Tobacco 05/12/25 10:40 e-Cigarette/Vaping Use Never Used 05/12/25 10:40 PHQ-9: PHQ-9 Score PHQ-9: Total score 4 05/12/25 10:40 Depression Screening Interpretation: Negative Thrive Assessment: Date of Thrive Assessment Date Thrive assessed 05/05/25 05/12/25 10:40 Currently or been in a relationship where the following occur: No concerns reported Const Other: General: no acute distress and well developed Nutritional Appearance: well nourished Orientation/consciousness: patient oriented x3 HENMT Head: Yes normocephalic and Yes atraumatic Eyes General: appearance normal, both eyes and all related structures Pupils: Equal, round and reactive pupils present EOM: EOMs intact bilaterally Resp Effort & Inspection: normal respiratory effort Auscultation: clear to auscultation bilaterally Cardio Rate: regular rate Rhythm: regular rhythm Heart sounds: S1 normal heart sound present, S2 normal heart sound present, no gallops, no murmurs and no rubs GI Palpation (GI): No Abdominal aortic bruit present, Soft to palpation, nontender, No hepatosplenomegaly present and No Rebound tenderness present Auscultation: normal bowel sounds General: Yes no CVA tenderness Back/Spine/Pelvis Back: no CVA tenderness Cervical Spine: cervical ROM normal and No Cervical spine tenderness Thoracic/Lumbar Spine: thoraco-lumbar ROM normal, No pain with thoraco-lumbar ROM, No thoracic spinal tenderness and No lumbar spinal tenderness Extrem General: Yes normal to inspection, No edema and No calf tenderness Skin General: warm and dry. Normal skin color. Normal skin turgor Neuro General: patient oriented x3, gait normal and no focal neuro deficit Cranial nerves: Yes Equal, round and reactive pupils present Cognition (Neuro): normal cognition Gait exam (Neuro): Normal gait present Sensory Exam: No Sensory deficit (Neuro) Psych Appearance: grossly normal Affect: normal affect Attitude: cooperative Thought process: Normal thought process present Coding Level of Care Code Est Pt Level 3 (91063) Diagnoses Encounter for weight management Z76.89 Morbid obesity with BMI of 45.0-49.9, adult E66.01; Z68.42 Assessment & Plan Assessment & Plan (1) Encounter for weight management: Code(s): Z76.89 - Persons encountering health services in other specified circumstances Category: Medical Plan: She currently weighs 280 lb, BMI is 46.7. She lost 8 lb since her last visit in August 2024. She has been making healthy dietary choices and exercising routinely. However, her weight fluctuates. She wants to get on GLP1 for weight management. Healthy diet and routine exercise encouraged. Referred to [facility] weight management clinic. Follow-up as needed. Verbalized understanding and agreed with the plan. (2) Morbid obesity with BMI of 45.0-49.9, adult: Code(s): E66.01 - Morbid (severe) obesity due to excess calories; Z68.42 - Body mass index [BMI] 45.0-49.9, adult Category: Medical Plan: Plan as above. Orders: Referrals Medical Weight Management Referral E66.01 - Morbid (severe) obesity due to excess calories, Z68.42 - Body mass index [BMI] 45.0-49.9, adult
[2025-05-12 10:43] VITALS: BP 121/58; PULSE 77; RESP 16; TEMP 36.7; O2SAT 99; BMI 46.7
--- OUTSIDE RECORDS SUMMARY | 2025-05-12 12:03 | XMS_ITS | Clinical Summary ---
Author Organization [facility] Address [address] [place] [address] Phone Care Team Providers Care Medicare Interviewer Name Role Phone Physician, No Pcp Primary Care Provider Unavaila ble Allergies No known active allergies Social History Tobacco Use Types Packs/Day Years [...] 63 01/14/2025 10:20 AM EDT Temperature 36.7 C (98.1 F) 01/14/2025 10:20 AM EDT Respiratory Rate 18 01/14/2025 10:20 AM EDT [...] Vaccine (1 of 2 - Standard) 2017 Cholesterol Screening (Lipid Panel) 08/23/2022 HIV Screening 08/23/2022 Hepatitis C Screening 08/23/2022 Social Influencers of Health Screening 08/23/2022 Cervical Cancer Screening: Pap Smear 2022 COVID-19 Vaccine ( season) 2024 01/31/2021, 01/10/2021 Depression Screening 09/24/2024 Influenza Vaccine (#1) 2025 4, 07/03/2023, 07/11/2017, Additional history exists DTaP,Tdap,and Td Vaccines (8 - Td or Tdap) 10/03/2033 10/03/2023, 11/28/2013, 02/01/2007, Additional history exists Hepatitis B Vaccines Completed 10/06/2002, 01/31/2002, 2001 HIB Vaccines Completed 04/03/2003, 12/2001, 05/16/2002, Additional history exists Pneumococcal Vaccine: Pediatrics (0 to 5 Years) and At-Risk Patients (6 to 49 Years) Completed 04/03/2003, 05/16/2002, 02/28/2002 IPV Vaccines Completed 02/01/2007, 06/24, 05/16/2002, Additional history exists Varicella Vaccines Completed 02/01/2007, 2002 Meningococcal ACWY Vaccine Aged Out 11/28/2013 N o longer eligible based on patient's age to complete this topic HPV Vaccines Completed 06/01/2014, 04/2014, 11/28/2013 Hepatitis A Vaccines Completed 02/11/2018, 07/11/20 17 MMR Vaccines Completed 11/29/2023, 01/22, 04/03/2003 RSV Immunization Patients Under 20 months Aged Out No longer eligible based on patient's age to complete this topic Insurance PLAN Care Teams Medicare Interviewer Relationship Specialty Start Date End Date Physician, No Pcp PCP - General 01/14/25
== END 2025-05-12 11:01 | disposition home or self-care (01) ==
LOC: HO.HMCFM 10:36
PROVIDERS: Visit Provider Nurse Practitioner Family
DX: Z76.89 Persons encountering health services in other specified circumstances (principal); E66.01 Morbid (severe) obesity due to excess calories; Z68.42 Body mass index [BMI] 45.0-49.9, adult

== ENCOUNTER → 2025-05-12 10:35 | Outpatient (BNVA) | payer OTHER, SELFPAY | PROVIDERS: Visit Provider Nurse Practitioner Family | DX: E66.01 Morbid (severe) obesity due to excess calories (principal); Z68.42 Body mass index [BMI] 45.0-49.9, adult; Z76.89 Persons encountering health services in other specified circumstances | CPT/HCPCS: 99212 ==